=== PATIENT | male | born 1950 | race Caucasian/White ===

== ENCOUNTER 2022-04-07 12:44 | Emergency (ER) | payer BC, MEDICARE ==
[2022-04-07 12:56] VITALS: BP 131/82; PULSE 61
[2022-04-07] MEDS ORDERED: Ketorolac 60 MG/2 ML SDV IM ONE (13:30)
== END 2022-04-07 14:24 | disposition home or self-care (01) ==
LOC: LB.ED 12:44
DX: N13.2 Hydronephrosis with renal and ureteral calculous obstruction (principal); K20.90 Esophagitis, unspecified without bleeding; N32.89 Other specified disorders of bladder; I10 Essential (primary) hypertension; E11.9 Type 2 diabetes mellitus without complications; Z91.048 Other nonmedicinal substance allergy status; Z88.1 Allergy status to other antibiotic agents; Z88.7 Allergy status to serum and vaccine; Z79.82 Long term (current) use of aspirin; Z79.899 Other long term (current) drug therapy
CPT/HCPCS: 36415; 74176; 80053; 81001; 85025; 96372; 99284-25; J1885

== ENCOUNTER 2022-12-06 00:38 | Emergency (ER) | payer MEDICARE ==
[2022-12-06] MEDS: Sodium Chloride 0.9% 500 ML IV ONE (01:56)
[2022-12-06] MEDS: Metoprolol Tartrate 5 MG in Sodium Chloride 0.9% 50 ML IV ONE (02:07)
[2022-12-06] MEDS: Metoprolol Tartrate 5 MG/5 ML SDV ONE (02:08)
[2022-12-06 02:18] LABS: TROPONIN I HIGH SENSITIVITY 12.8 pg/ml (<=60.4)
[2022-12-06 02:45] VITALS: BP 107/64; PULSE 90
[2022-12-06] MEDS: Sodium Chloride 0.9% 50 ML SDV FLUSH SCH (03:08)
[2022-12-06] MEDS: Iopamidol 612 MG/ML 100 ML Bottle IV PRN (03:08)
[2022-12-06] MEDS: Enoxaparin 80 MG/0.8 ML Syringe SUBCUT ONE (04:44)
[2022-12-06] MEDS: Enoxaparin 80 MG/0.8 ML Syringe ONE (08:44)
== END 2022-12-06 04:45 | disposition home or self-care (01) ==
LOC: LB.ED 00:38
DX: I48.91 Unspecified atrial fibrillation (principal); I10 Essential (primary) hypertension; E11.9 Type 2 diabetes mellitus without complications; Z88.1 Allergy status to other antibiotic agents; Z88.7 Allergy status to serum and vaccine; Z91.048 Other nonmedicinal substance allergy status; Z79.82 Long term (current) use of aspirin; Z79.899 Other long term (current) drug therapy
CPT/HCPCS: 36415; 71260; 80053; 81001; 83880; 84484; 85025; 85379; 93005; 96365; 96372; 99285-25; J1650; J3490; J7040; Q9967

== ENCOUNTER 2023-01-21 21:56 | Emergency (ER) | payer MEDICARE ==
[2023-01-21] MEDS ORDERED: Sodium Chloride 0.9% 10 ML Syringe FLUSH PRN (22:18)
[2023-01-21] MEDS: Sodium Chloride 0.9% 1,000 ML IV SCH (22:32)
[2023-01-21 23:01] LABS: TROPONIN I HIGH SENSITIVITY 13.2 pg/ml (<=60.4)
[2023-01-22 00:09] VITALS: BP 102/66; PULSE 86
== END 2023-01-21 23:45 | disposition home or self-care (01) ==
LOC: LB.ED 21:56
DX: I48.91 Unspecified atrial fibrillation (principal); I10 Essential (primary) hypertension; E11.9 Type 2 diabetes mellitus without complications; Z91.048 Other nonmedicinal substance allergy status; Z88.1 Allergy status to other antibiotic agents; Z88.7 Allergy status to serum and vaccine; Z79.82 Long term (current) use of aspirin; Z79.899 Other long term (current) drug therapy
CPT/HCPCS: 36415; 80048; 83735; 84100; 84484; 85027; 85610; 93005; 96360; 99285; J7030

== ENCOUNTER 2023-09-08 19:30 | Emergency (ER) | payer MEDICARE ==
[2023-09-08] MEDS ORDERED: Acetaminophen 500 MG Tab PO ONE (20:38)
[2023-09-08 20:53] LABS: BASOPHILS ABSOLUTE AUTO 0.02 K/uL (0.02-0.10); BASOPHILS PERCENT AUTO 0.2 % (0.0-0.5); EOSINOPHILS ABSOLUTE AUTO 0.03 K/uL (0.04-0.40); EOSINOPHILS PERCENT AUTO 0.3 % (1.0-5.0); HEMATOCRIT 41.6 % (40.0-54.0); LYMPHOCYTES ABSOLUTE AUTO 0.52 K/uL (1.50-4.00); MEAN CORPUSCULAR HEMOGLOBIN 30.4 pg (27.0-32.0); MEAN CORPUSCULAR HGB CONC 36.1 g/dL (31.0-35.0); MEAN CORPUSCULAR VOLUME 84 fL (76-96); MEAN PLATELET VOLUME 9.2 fL (6.0-10.0); MONOCYTES PERCENT AUTO 7.7 % (3.0-10.0); NEUTROPHILS ABSOLUTE AUTO 9.07 K/uL (2.00-7.50); NEUTROPHILS PERCENT AUTO 86.8 % (45.0-70.0); PLATELET COUNT,PLT 186 K/uL (150-400); RED BLOOD CELL COUNT 4.94 M/uL (4.50-6.50); RED CELL DISTRIBUTION WIDTH 12.8 % (11.0-16.0); WHITE BLOOD CELL COUNT,WBC 10.4 K/uL (4.0-11.0)
[2023-09-08] MEDS ORDERED: Ondansetron 4 MG Tab.DIS PO PRN (21:08)
[2023-09-08 21:09] LABS: APPEARANCE,URINE CLEAR (CLEAR); BILIRUBIN,URINE NEGATIVE (NEGATIVE); COLOR,URINE YELLOW; GLUCOSE,URINE NEGATIVE (NEGATIVE); KETONES,URINE NEGATIVE (NEGATIVE); LEUKOCYTE ESTERASE,URINE NEGATIVE (NEGATIVE); NITRITE,URINE NEGATIVE (NEGATIVE); OCCULT BLOOD,URINE NEGATIVE (NEGATIVE); PROTEIN,URINE NEGATIVE (NEGATIVE)
[2023-09-08] MEDS ORDERED: Ondansetron 4 MG Tab.DIS ONE (21:09)
[2023-09-08] MEDS ORDERED: Acetaminophen 500 MG Tab ONE (21:10)
[2023-09-08 21:11] LABS: A/G RATIO 1.3 (0.8-2.0); ALBUMIN 3.6 g/dL (3.4-5.0); ANION GAP 10.3 mmol/L (5.0-15.0); BILIRUBIN TOTAL 0.6 mg/dL (0.0-1.0); BUN/CREATININE RATIO 14.3 (6-25); CALCIUM 8.8 mg/dL (8.5-10.1); CARBON DIOXIDE,CO2 24.4 mmol/L (21.0-32.0); CREATININE 0.98 mg/dL (0.70-1.30); EST CRCL DRUG DOSING (CG) 70.26 mL/min; POTASSIUM,K 3.7 mmol/L (3.5-5.1); PROTEIN TOTAL,TP 6.4 g/dL (6.4-8.2)
[2023-09-08 21:13] LABS: RBC,URINE NOT SEEN /HPF; WBC,URINE NOT SEEN /HPF
[2023-09-08] MEDS ORDERED: Sodium Chloride 0.9% 1,000 ML IV ONE (21:22)
[2023-09-08 21:40] LABS: INFLUENZA A NAA NEGATIVE (NEGATIVE); INFLUENZA B NAA NEGATIVE (NEGATIVE)
[2023-09-08 21:42] LABS: CORONAVIRUS COVID-19 NAA POSITIVE (NEGATIVE)
[2023-09-08 23:11] VITALS: BP 111/58; PULSE 86
== END 2023-09-08 22:45 | disposition home or self-care (01) ==
LOC: LB.ED 19:30
DX: U07.1 COVID-19 (principal); I48.91 Unspecified atrial fibrillation; I10 Essential (primary) hypertension; E11.9 Type 2 diabetes mellitus without complications; Z86.16 Personal history of COVID-19; Z88.7 Allergy status to serum and vaccine; Z88.1 Allergy status to other antibiotic agents; Z91.048 Other nonmedicinal substance allergy status; Z79.01 Long term (current) use of anticoagulants; Z79.84 Long term (current) use of oral hypoglycemic drugs; Z79.899 Other long term (current) drug therapy
CPT/HCPCS: 0240U; 36415; 74176; 80053; 81001; 83605; 85025; 96360; 99284; A9270; J7030; Q0162

== ENCOUNTER 2024-03-18 01:36 | Emergency (ER) | payer MEDICARE ==
[2024-03-18] MEDS ORDERED: Sodium Chloride 0.9% 10 ML Syringe FLUSH PRN (01:53)
[2024-03-18 02:09] LABS: HEMATOCRIT 46.9 % (40.0-54.0); HEMOGLOBIN 16.7 g/dL (13.0-18.0); MEAN CORPUSCULAR HEMOGLOBIN 30.3 pg (27.0-32.0); MEAN CORPUSCULAR HGB CONC 35.6 g/dL (31.0-35.0); MEAN PLATELET VOLUME 9.4 fL (6.0-10.0); RED BLOOD CELL COUNT 5.51 M/uL (4.50-6.50); WHITE BLOOD CELL COUNT,WBC 8.4 K/uL (4.0-11.0)
[2024-03-18 02:18] LABS: INR 2.8 (1.0-3.5)
[2024-03-18 02:21] LABS: PROTHROMBIN TIME 27.6 sec (9.0-11.5)
[2024-03-18 02:27] LABS: A/G RATIO 1.2 (0.8-2.0); ALBUMIN 3.6 g/dL (3.4-5.0); ANION GAP 13.5 mmol/L (5.0-15.0); BILIRUBIN TOTAL 0.5 mg/dL (0.0-1.0); BUN/CREATININE RATIO 21.6 (6-25); CALCIUM 8.6 mg/dL (8.5-10.1); CARBON DIOXIDE,CO2 25.1 mmol/L (21.0-32.0); CREATININE 0.88 mg/dL (0.70-1.30); EST CRCL DRUG DOSING (CG) 75.88 mL/min; POTASSIUM,K 3.6 mmol/L (3.5-5.1); PROTEIN TOTAL,TP 6.6 g/dL (6.4-8.2); TROPONIN I HIGH SENSITIVITY 5.8 pg/ml (<=60.4)
[2024-03-18] MEDS: Sodium Chloride 0.9% 1,000 ML IV SCH (02:38)
[2024-03-18] MEDS: Metoprolol Tartrate 25 MG Tab PO ONE (02:48)
[2024-03-18] MEDS: Amiodarone 150 MG in Dextrose 5% in Water 100 ML IV SCH (02:48)
[2024-03-18 07:01] VITALS: BP 102/61
[2024-03-18 08:09] VITALS: PULSE 81
== END 2024-03-18 07:40 | disposition home or self-care (01) ==
LOC: LB.ED 01:36
DX: I48.0 Paroxysmal atrial fibrillation (principal); I10 Essential (primary) hypertension; E11.9 Type 2 diabetes mellitus without complications; Z88.1 Allergy status to other antibiotic agents; Z91.048 Other nonmedicinal substance allergy status; Z88.7 Allergy status to serum and vaccine; Z79.84 Long term (current) use of oral hypoglycemic drugs; Z79.01 Long term (current) use of anticoagulants; Z79.899 Other long term (current) drug therapy; Z86.16 Personal history of COVID-19; Z90.49 Acquired absence of other specified parts of digestive tract
CPT/HCPCS: 36415; 70450; 71250; 80053; 84484; 85027; 85610; 93005; 93010; 96374; 99284; 99285; A9270; J0282; J7030

== ENCOUNTER 2025-03-16 04:15 | Emergency (ER) | payer MEDICARE ==
[2025-03-16] MEDS: Sodium Chloride 0.9% 10 ML Syringe FLUSH PRN (04:52)
[2025-03-16] MEDS: Metoprolol Tartrate 5 MG/5 ML SDV IVPUSH ONE (05:01)
[2025-03-16 05:16] VITALS: BP 112/77; PULSE 98
== END 2025-03-16 05:36 | disposition home or self-care (01) ==
LOC: LB.ED 04:15
DX: I48.0 Paroxysmal atrial fibrillation (principal); I10 Essential (primary) hypertension; E78.00 Pure hypercholesterolemia, unspecified; E11.9 Type 2 diabetes mellitus without complications; Z90.49 Acquired absence of other specified parts of digestive tract; Z88.7 Allergy status to serum and vaccine; Z88.8 Allergy status to other drugs, medicaments and biological substances; Z91.048 Other nonmedicinal substance allergy status; Z79.01 Long term (current) use of anticoagulants; Z79.84 Long term (current) use of oral hypoglycemic drugs; Z79.899 Other long term (current) drug therapy
CPT/HCPCS: 93005; 96374; 99284; J3490; 93010